=== PATIENT | female | born 1955 | race African-American/Black ===

== ENCOUNTER 2017-12-22 03:45 | Inpatient (IN) | payer MEDICAID, OTHER ==
[~2017-12-22] VITALS: Ht 152.4 cm; Wt 49.9 kg
[~2017-12-22 03:45] MED LIST: ALBU6.7H3 IH; AMLO2.5T2 PO; FLUT1DIS3 IH; LEVO500T2 PO; MONT10TA21 PO; P20 PO; PRED10TA23 PO; THEO80EL3 PO; TIOT18CA3 IH
[2017-12-22] MEDS ORDERED: METHYLPREDNISOLONE SOD SUCC 125 MG/2 ML VIAL IV STA (03:57)
[2017-12-22] MEDS ORDERED: IPRATROPIUM BROMIDE (0.02%) 0.5MG/2.5ML NEB HHN STA (03:57)
[2017-12-22] MEDS ORDERED: ALBUTEROL (0.083%) 2.5MG/3ML NEB HHN STA (03:57)
[2017-12-22] MEDS ORDERED: NITROGLYCERIN OINT 1GM/INCH UDPKT TD ONE (04:00)
[2017-12-22] MEDS ORDERED: MAGNESIUM 2 G PREMIX 50 ML IV ONE (04:00)
[2017-12-22] MEDS ORDERED: ASPIRIN 81MG TABLET PO ONE (04:00)
[2017-12-22] MEDS ORDERED: LEVOFLOXACIN 750MG PREMIX 150 ML IV ONE (04:00)
[2017-12-22 04:41] LABS: BASOPHILS % 0.5 % (0.0-2.0); EOSINOPHILS % 1.6 % (0.0-5.0); HEMATOCRIT. 44.7 % (36.0-48.0); HEMOGLOBIN. 14.4 g/dL (12.0-16.0); LYMPHOCYTES % 54.4 % (20.0-50.0); MEAN CORPUSCULAR VOLUME 83.8 fL (81.0-99.0); MEAN PLATELET VOLUME 8.2 fl (7.4-10.4); MONOCYTES % 7.7 % (2.0-8.0); NEUTROPHILS % 35.8 % (40.0-76.0); PLATELET 320 x1000/uL (130-400); RED BLOOD CELL COUNT 5.34 mill/uL (4.2-5.4); RED CELL DISTRIBUTION WIDTH 15.6 % (11.6-14.6)
[2017-12-22 04:49] LABS: CHLORIDE 109 mEq/L (98-107); ETHANOL BLOOD 156 mg/dL
[2017-12-22 04:54] LABS: TROPONIN I < 0.02 ng/mL (0.00-0.04)
[2017-12-22 07:54] LABS: CLARITY URINE CLEAR (CLEAR); COLOR URINE YELLOW (YELLOW); KETONES URINE NEGATIVE (NEGATIVE); LEUKOCYTE ESTERASE URINE NEGATIVE (NEGATIVE); NITRITE URINE NEGATIVE (NEGATIVE); OCCULT BLOOD URINE NEGATIVE (NEGATIVE); PH URINE 5.5 (4.5-8.0); PROTEIN URINE NEGATIVE (NEGATIVE); SPECIFIC GRAVITY URINE 1.011 (1.005-1.030); UROBILINOGEN URINE 0.2 E.U./dL (0.2-1.0)
[2017-12-22 08:06] LABS: *AMPHETAMINES SCREEN URINE NEGATIVE (NEGATIVE); *BARBITURATES SCREEN URINE NEGATIVE (NEGATIVE); *BENZODIAZEPINES SCREEN URINE NEGATIVE (NEGATIVE); *COCAINE SCREEN URINE PRESUMTIVE POSITIVE (NEGATIVE); CANNABINOID URINE SCREEN NEGATIVE (NEGATIVE); METHADONE URINE SCREEN NEGATIVE (NEGATIVE); OPIATES URINE SCREEN NEGATIVE (NEGATIVE); PHENCYCLIDINE URINE SCREEN NEGATIVE (NEGATIVE)
[2017-12-22 08:30] VITALS: BP 106/58
[2017-12-22] MEDS ORDERED: GUAIFENESIN 200MG/10ML SUGAR FREE UDC PO PRN (08:45)
[2017-12-22] MEDS ORDERED: HYDROCODONE/ACETAMINOPHEN 10/325MG TABLET PO PRN (08:45)
[2017-12-22] MEDS ORDERED: MORPHINE SULFATE 2 MG/ML CPJ (NOT FOR IM USE) IV PRN (08:45)
[2017-12-22] MEDS ORDERED: CLONIDINE 0.1MG TABLET PO PRN (08:45)
[2017-12-22] MEDS ORDERED: MAGNESIUM/ALUMINUM HYDROXIDE/SIMETHICONE 30ML UDC PO PRN (08:45)
[2017-12-22] MEDS ORDERED: ONDANSETRON HCL 4MG/2ML VIAL IV PRN (08:45)
[2017-12-22] MEDS ORDERED: IPRATROPIUM/ALBUTEROL 0.5-3(2.5)MG/3ML NEB INH PRN (08:45)
[2017-12-22] MEDS ORDERED: ACETAMINOPHEN 325MG TABLET PO PRN (08:45)
[2017-12-22] MEDS ORDERED: NA PHOS,M-B/NA PHOS,DI-BA ENEMA 118ML PR PRN (08:45)
[2017-12-22] MEDS ORDERED: DOCUSATE SODIUM 100MG CAPSULE PO PRN (08:45)
[2017-12-22] MEDS ORDERED: DIPHENHYDRAMINE 50MG/ML VIAL IV PRN (08:45)
[2017-12-22] MEDS ORDERED: LORAZEPAM 2MG/ML CPJ IV PRN (08:45)
[2017-12-22 09:08] LABS: CHLORIDE 111 mEq/L (98-107)
[2017-12-22] MEDS ORDERED: MORPHINE SULFATE 4 MG/ML CPJ (NOT FOR IM USE) IV PRN (09:45)
[2017-12-22] MEDS: METHYLPREDNISOLONE SOD SUCC 125 MG/2 ML VIAL IV SCH ×2 (10:13→14:35)
[2017-12-22] MEDS: ENOXAPARIN 40MG/0.4ML SYR SUBCUT SCH (10:14)
[2017-12-22] MEDS: ASPIRIN 81MG EC TABLET PO SCH (10:14)
[2017-12-22] MEDS ORDERED: TIMO15DR12 EACHEYE (10:41)
[2017-12-22] MEDS ORDERED: TRAV2.5D EACHEYE (10:41)
[2017-12-22] MEDS ORDERED: BACL-141 PO (10:45)
[2017-12-22] MEDS ORDERED: NON FORMULARY PATIENT HOME MED EA XX SCH (10:45)
[2017-12-22] MEDS ORDERED: ATOR10TA69 PO (10:46)
[2017-12-22] MEDS ORDERED: MELO-106 PO (10:50)
[2017-12-22 12:00] VITALS: BP 131/75
[2017-12-22 12:58] VITALS: BP 106/58
[2017-12-22] MEDS: TIMOLOL MALEATE 0.5% OPHTH DROPS 5ML EACHEYE SCH ×2 (14:35→21:40)
[2017-12-22 16:06] VITALS: BP 132/68
[2017-12-22] MEDS ORDERED: THIAMINE HCL 100MG TABLET PO NR (17:42)
[2017-12-22] MEDS ORDERED: LORAZEPAM 0.5MG TABLET PO PRN (17:45)
[2017-12-22] MEDS ORDERED: NICOTINE 21MG PATCH TD NR (18:30)
[2017-12-22 20:00] VITALS: BP 159/78
[2017-12-22] MEDS: METHYLPREDNISOLONE SOD SUCC 40 MG/ML VIAL IV SCH (21:40)
[2017-12-22] MEDS: QUETIAPINE FUMARATE 100MG TABLET PO SCH (21:40)
[2017-12-22] MEDS: ATORVASTATIN CALCIUM 10MG TABLET PO SCH (21:40)
[2017-12-22] MEDS: LATANOPROST 0.005% OPHTH DROPS 2.5ML EACHEYE SCH (21:44)
[2017-12-22] MEDS: IPRATROPIUM/ALBUTEROL 0.5-3(2.5)MG/3ML NEB HHN SCH (21:47)
[2017-12-22] MEDS: NICOTINE 21MG PATCH TD SCH (21:47)
[2017-12-23] VITALS: BP_SYST 118; BP_SYST 146; BP_DIAS 73; BP_DIAS 77
[2017-12-23 00:23] LABS: CREATINE KINASE 100 IU/L (26-192); CREATINE KINASE MB FRACTION 1.2 ng/mL (0.5-3.6); TROPONIN I < 0.02 ng/mL (0.00-0.04)
[2017-12-23] MEDS: IPRATROPIUM/ALBUTEROL 0.5-3(2.5)MG/3ML NEB HHN SCH ×4 (01:17→21:07)
[2017-12-23 04:00] VITALS: BP 147/77
[2017-12-23] MEDS ORDERED: LEVOFLOXACIN 500MG PREMIX 100 ML IV SCH (05:00)
[2017-12-23] MEDS: METHYLPREDNISOLONE SOD SUCC 40 MG/ML VIAL IV SCH (05:58)
[2017-12-23 07:02] LABS: BASOPHILS % 0.1 % (0.0-2.0); HEMATOCRIT. 39.4 % (36.0-48.0); HEMOGLOBIN. 12.5 g/dL (12.0-16.0); LYMPHOCYTES % 12.2 % (20.0-50.0); MEAN CORPUSCULAR HEMOGLOBIN 26.8 pg (28.0-32.0); MEAN CORPUSCULAR VOLUME 84.5 fL (81.0-99.0); MEAN PLATELET VOLUME 8.4 fl (7.4-10.4); MONOCYTES % 6.5 % (2.0-8.0); NEUTROPHILS % 81.2 % (40.0-76.0); PLATELET 289 x1000/uL (130-400); RED BLOOD CELL COUNT 4.66 mill/uL (4.2-5.4); RED CELL DISTRIBUTION WIDTH 15.7 % (11.6-14.6)
[2017-12-23 07:23] LABS: CHLORIDE 110 mEq/L (98-107)
[2017-12-23 07:35] LABS: CREATINE KINASE 81 IU/L (26-192); CREATINE KINASE MB FRACTION 1.3 ng/mL (0.5-3.6); HDL CHOLESTEROL 78 mg/dL (40-59); LDL CHOLESTEROL 79 mg/dL (5-100); T4 FREE 0.76 ng/dL (0.76-1.46); TROPONIN I < 0.02 ng/mL (0.00-0.04)
[2017-12-23 08:00] VITALS: BP 159/82
[2017-12-23] MEDS: FOLIC ACID 1MG TABLET PO SCH (09:09)
[2017-12-23] MEDS: TIMOLOL MALEATE 0.5% OPHTH DROPS 5ML EACHEYE SCH ×2 (09:09→20:23)
[2017-12-23] MEDS: THIAMINE HCL 100MG TABLET PO SCH (09:09)
[2017-12-23] MEDS: ASPIRIN 81MG EC TABLET PO SCH (09:09)
[2017-12-23] MEDS: MULTIVITAMINS,THER W-MINERALS TABLET PO SCH (09:09)
[2017-12-23] MEDS: ENOXAPARIN 40MG/0.4ML SYR SUBCUT SCH (09:10)
[2017-12-23 12:00] VITALS: BP 138/74
[2017-12-23 16:00] VITALS: BP 142/77
[2017-12-23 16:12] LABS: CREATINE KINASE 61 IU/L (26-192); CREATINE KINASE MB FRACTION 1.2 ng/mL (0.5-3.6); TROPONIN I < 0.02 ng/mL (0.00-0.04)
[2017-12-23 20:00] VITALS: BP 151/85
[2017-12-23] MEDS: ATORVASTATIN CALCIUM 10MG TABLET PO SCH (20:24)
[2017-12-23] MEDS: QUETIAPINE FUMARATE 100MG TABLET PO SCH (20:24)
[2017-12-23] MEDS: LATANOPROST 0.005% OPHTH DROPS 2.5ML EACHEYE SCH (20:24)
[2017-12-24] VITALS: BP 135/67
[2017-12-24] MEDS: IPRATROPIUM/ALBUTEROL 0.5-3(2.5)MG/3ML NEB HHN SCH ×3 (01:26→15:30)
[2017-12-24 04:00] VITALS: BP 126/65
[2017-12-24 08:00] VITALS: BP 135/72
[2017-12-24] MEDS ORDERED: LEVOFLOXACIN 500MG PREMIX 100 ML IV SCH (09:00)
[2017-12-24] MEDS ORDERED: PREDNISONE 20MG TABLET PO SCH (09:00)
[2017-12-24] MEDS: TIMOLOL MALEATE 0.5% OPHTH DROPS 5ML EACHEYE SCH (09:20)
[2017-12-24] MEDS: MULTIVITAMINS,THER W-MINERALS TABLET PO SCH (09:21)
[2017-12-24] MEDS: FOLIC ACID 1MG TABLET PO SCH (09:21)
[2017-12-24] MEDS: ASPIRIN 81MG EC TABLET PO SCH (09:21)
[2017-12-24] MEDS: THIAMINE HCL 100MG TABLET PO SCH (09:21)
[2017-12-24] MEDS: NICOTINE 21MG PATCH TD SCH (09:22)
[2017-12-24] MEDS: ENOXAPARIN 40MG/0.4ML SYR SUBCUT SCH (09:22)
[2017-12-24 11:43] VITALS: BP 135/72
[2017-12-24 12:00] VITALS: BP 159/82
== END 2017-12-24 12:49 | disposition home or self-care (01) | DRG 139 ==
LOC: ER 03:45 → 6EST 05:25 → EDBEDREQTM 05:43 → EDBEDREQ 05:43 → EDBEDREQSVC 05:44
PROVIDERS: ADMIT Internal Medicine; ATTEND Internal Medicine
DX: J18.9 Pneumonia, unspecified organism (principal); J96.00 Acute respiratory failure, unspecified whether with hypoxia or hypercapnia; J44.0 Chronic obstructive pulmonary disease with (acute) lower respiratory infection; E86.0 Dehydration; I10 Essential (primary) hypertension; J44.1 Chronic obstructive pulmonary disease with (acute) exacerbation; H54.61 Unqualified visual loss, right eye, normal vision left eye; F41.9 Anxiety disorder, unspecified; B19.20 Unspecified viral hepatitis C without hepatic coma; F10.10 Alcohol abuse, uncomplicated; F14.10 Cocaine abuse, uncomplicated; E78.00 Pure hypercholesterolemia, unspecified; E78.5 Hyperlipidemia, unspecified; F17.210 Nicotine dependence, cigarettes, uncomplicated; Z79.899 Other long term (current) drug therapy; Z79.2 Long term (current) use of antibiotics
CPT/HCPCS: 36415; 71045; 80048; 80053; 80061; 80305; 81003; 82550; 82553; 83036; 83605; 83690; 83880; 84439; 84443; 84484; 85025; 85379; 85610; 87040; 87086; 87804; 93005; 93306; 93970; 94640; 96365; 96366; 96368; 96375; 99285; G0482; J1650; J1956; J2920; J2930; J3475; J7512; J7611; J7620